=== PATIENT | female | born 1970 | race American Indian/Alaskan Native ===

== ENCOUNTER 2017-01-07 23:20 | Emergency (ER) | payer MEDICAID ==
[2017-01-07] MEDS ORDERED: Ondansetron 4 MG/2 ML SDV IV ONE (23:33)
[2017-01-07] MEDS ORDERED: Sodium Chloride 0.9% 1,000 ML IV ONE (23:33)
[2017-01-07 23:34] VITALS: BP 134/71
--- NOTE | 2017-01-07 23:43 | EDM.PDOC ---
ED HPI GI/ABDOMINAL - General Chief Complaint: Abdominal Pain Stated Complaint: VOMITING W/BLOOD,CAN'T KEEP ANYTHING DOWN Time Seen by Provider: 01/07/17 23:35 Source of Information: Reports: Patient History Limitations: Reports: No limitations - History of Present Illness INITIAL COMMENTS - FREE TEXT/NARRATIVE: This 46 yo female patient reports to the ED with nausea/vomiting and not feeling well. The patient reports her symptoms started about 1 week ago, but have been getting worse over the past 2 days. The patient has not been seen by a clinic provider. The patient denies any drug or ETOH use. The patient does have a history of Honey with a similar episode about 8 years ago. The patient reports having some blood in her vomit, but no large amounts of blood in her vomit. Symptom Onset Date: 12/31/16 Timing/Duration: Reports: Constant, Getting worse Location: generalized Quality: Reports: ache, cramping Severity: moderate Improves with: Reports: other Worsens with: Reports: other Associated Symptoms (-Female): Reports: malaise, nausea/vomiting - Related Data Allergies/ADRs: Allergies Allergy/AdvReac Type Severity Reaction Status Date / Time codeine Allergy Nausea and Verified 01/07/17 23:29 Vomiting flu vacine Allergy Hives Uncoded 01/07/17 23:29 Home Meds: Home Meds Ibuprofen [Motrin] 800 mg PO Q6H PRN 08/06/15 [History] Sertraline [Zoloft] 150 mg PO BEDTIME 08/06/15 [History] Pregabalin [Lyrica] 150 mg PO BID 09/18/15 [History] Zolpidem Tartrate [Ambien] 5 mg PO BEDTIME PRN 06/29/16 [History] Past Medical History - Past Health History Medical/Surgical History: Denies Medical/Surgical History HEENT History: Reports: Impaired vision Other HEENT History: wears glasses Cardiovascular History: Reports: None Respiratory History: Reports: None Gastrointestinal History: Reports: Cholelithiasis Genitourinary History: Reports: UTI, recurrent REGISTRATION SPECIALIST History: Reports: Dysfunctional uterine bleeding, Ectopic , , Other (see below) Other OB/BYN History: 5 nvd, 1 tubal, 1 stillborn Musculoskeletal History: Reports: Fibromyalgia, Neck pain, chronic Other Musculoskeletal History: lupus Neurological History: Reports: Concussion, Headaches, chronic, Head trauma, Migraines, Vertigo Psychiatric History: Reports: Anxiety, Depression Endocrine/Metabolic History: Reports: Obesity/BMI 30+, Vitamin D deficiency Hematologic History: Reports: Anemia Immunologic History: Reports: SLE Oncologic (Cancer) History: Reports: Uterine Dermatologic History: Reports: None - Infectious Disease History Infectious Disease History: Reports: Chicken pox - Past Surgical History Head Surgeries/Procedures: Reports: None GI Surgical History: Reports: Appendectomy, Cholecystectomy, EGD Female Surgical History: Reports: Hysterectomy, Other (see below) Other Female Surgeries/Procedures: Ectopic with tube removal Social & Family History - Family History Family Medical History: Noncontributory Cardiac: Reports: CAD, Hypertension, [place], Prior cardiac arrest Respiratory: Reports: Asthma, COPD GI: Reports: Pancreatitis : Reports: Diabetic nephropathy, Pyelonephritis, Renal disease/insufficiency Musculoskeletal: Reports: Arthritis Endocrine/Metabolic: Reports: Diabetes, type II, IDDM Hematologic: Reports: SLE Immunologic: Reports: SLE Oncologic: Reports: Prostate, Other (see below) Other Oncologic Family History: brother had stomach CA - Tobacco Use Smoking Status *Q: Unknown Ever Smoked Years of Tobacco use: 20 Packs/Tins Daily: 0.2 Used Tobacco, but Quit: Yes Month Tobacco Last Used: 06/2016 Second Hand Smoke Exposure: No - Caffeine Use Caffeine Use: Reports: Soda - Alcohol Use Days Per Week of Alcohol Use: 0 - Recreational Drug Use Recreational Drug Use: No - Living Situation & Occupation Living situation: Reports: with family ED ROS GENERAL - Review of Systems Review Of Systems: ROS reveals no pertinent complaints other than HPI. ED EXAM, GI/ABD - Physical Exam Exam: See Below Exam Limited By: No limitations General Appearance: alert, WD/WN, moderate distress, obese Eyes: bilateral: EOMI Ears: normal external exam, normal canal, hearing grossly normal, normal TMs Nose: normal inspection, normal mucosa, no blood Throat/Mouth: Normal inspection, Normal lips, Normal teeth, Normal gums, Normal oropharynx, Normal voice, No airway compromise Head: atraumatic, normocephalic Neck: normal inspection, supple, non-tender, full range of motion Respiratory/Chest: no respiratory distress, lungs clear, normal breath sounds, no accessory muscle use, chest non-tender Cardiovascular: normal peripheral pulses, regular rate, rhythm, no edema, no gallop, no JVD, no murmur, no rub GI/Abdominal: normal bowel sounds, soft, non tender, no organomegaly, no distention, no abnormal bruit, no mass (Female) Exam: Deferred Rectal (Female) Exam: Deferred Back Exam: normal inspection, full range of motion, NT Extremities: normal inspection, normal range of motion, non-tender, normal capillary refill, no pedal edema Neurological: alert, oriented, CN II-XII intact, normal cognition, normal gait, normal reflexes, no motor/sensory deficits Psychiatric: normal affect, normal mood Skin Exam: Warm, Dry, Intact, Normal color, No rash Lymphatic: no adenopathy Course - Vital Signs Last Recorded V/S: Last Vital Signs Temp 36.4 C 01/07/17 23:33 Pulse 93 01/07/17 23:33 Resp 18 01/07/17 23:33 BP 134/71 01/07/17 23:33 Pulse Ox 99 01/07/17 23:33 - Orders/Labs/Meds Orders: Active Orders 24 hr Category Date Time Status AMYLASE [CHEM] Stat Lab 01/07/17 23:48 Received COMPREHENSIVE METABOLIC PN,CMP [CHEM] Stat Lab 01/07/17 23:48 Received LIPASE [CHEM] Stat Lab 01/07/17 23:48 Received SEDIMENTATION RATE MANUAL [HEME] Stat Lab 01/07/17 23:48 Received Labs: Laboratory Tests 01/07/17 01/07/17 01/07/17 Range/Units 23:48 23:48 23:48 WBC 6.8 (5.0-10.0) 10^3/uL RBC 3.31 L (4.2-5.4) 10^6/uL Hgb 11.0 L (12.0-16.0) g/dL Hct 30.5 L (37.0-47.0) % MCV 92.1 (80-100) fL MCH 33.2 (27.0-34.0) pg MCHC 36.1 H (33.0-35.0) g/dL Plt Count 166 (150-450) 10^3/uL Neut % (Auto) 55.0 (42.2-75.2) % Lymph % (Auto) 27.5 (20.5-50.1) % [place] % (Auto) 15.1 H (2-8) % Eos % (Auto) 2.1 (1.0-3.0) % Baso % (Auto) 0.3 (0.0-1.0) % Ammonia 43 H (11-35) umol/L C-Reactive Protein 3.2 H (0.0-1.3) mg/dL Urine Color (YELLOW) Urine Appearance (CLEAR) Urine pH (5.0-9.0) Ur Specific [place] (1.005-1.030) Urine Protein (NEGATIVE) Urine Glucose (UA) (NEGATIVE) Urine Ketones (NEGATIVE) Urine Occult Blood (NEGATIVE) Urine Nitrite (NEGATIVE) Urine Bilirubin (NEGATIVE) Urine Urobilinogen (0.2-1.0) mg/dL Ur Leukocyte Esterase (NEGATIVE) Urine RBC /HPF Urine WBC (0-5/HPF) /HPF Ur Epithelial Cells /HPF Calcium Oxalate Crystal /HPF Amorphous Sediment (0/HPF) /HPF Urine Bacteria (0-FEW/HPF) /HPF Urine Opiates Screen (NEGATIVE) Ur Oxycodone Screen (NEGATIVE) Urine Methadone Screen (NEGATIVE) Ur Barbiturates Screen (NEGATIVE) U Tricyclic Antidepress (NEGATIVE) Ur Phencyclidine Scrn (NEGATIVE) Ur Amphetamine Screen (NEGATIVE) U Methamphetamines Scrn (NEGATIVE) Urine MDMA Screen (NEGATIVE) U Benzodiazepines Scrn (NEGATIVE) Urine Cocaine Screen (NEGATIVE) U Marijuana (THC) Screen (NEGATIVE) 01/07/17 01/07/17 Range/Units 23:55 23:55 WBC (5.0-10.0) 10^3/uL RBC (4.2-5.4) 10^6/uL Hgb (12.0-16.0) g/dL Hct (37.0-47.0) % MCV (80-100) fL MCH (27.0-34.0) pg MCHC (33.0-35.0) g/dL Plt Count (150-450) 10^3/uL Neut % (Auto) (42.2-75.2) % Lymph % (Auto) (20.5-50.1) % [place] % (Auto) (2-8) % Eos % (Auto) (1.0-3.0) % Baso % (Auto) (0.0-1.0) % Ammonia (11-35) umol/L C-Reactive Protein (0.0-1.3) mg/dL Urine Color [place] (YELLOW) Urine Appearance Slightly cloudy (CLEAR) Urine pH 6.5 (5.0-9.0) Ur Specific [place] 1.020 (1.005-1.030) Urine Protein Negative (NEGATIVE) Urine Glucose (UA) Negative (NEGATIVE) Urine Ketones Negative (NEGATIVE) Urine Occult Blood Negative (NEGATIVE) Urine Nitrite Negative (NEGATIVE) Urine Bilirubin Large H (NEGATIVE) Urine Urobilinogen 4.0 H (0.2-1.0) mg/dL Ur Leukocyte Esterase Negative (NEGATIVE) Urine RBC 0-5 /HPF Urine WBC 0-5 (0-5/HPF) /HPF Ur Epithelial Cells Moderate H /HPF Calcium Oxalate Crystal Moderate H /HPF Amorphous Sediment Few (0/HPF) /HPF Urine Bacteria Many H (0-FEW/HPF) /HPF Urine Opiates Screen Negative (NEGATIVE) Ur Oxycodone Screen Negative (NEGATIVE) Urine Methadone Screen Negative (NEGATIVE) Ur Barbiturates Screen Negative (NEGATIVE) U Tricyclic Antidepress Negative (NEGATIVE) Ur Phencyclidine Scrn Negative (NEGATIVE) Ur Amphetamine Screen Negative (NEGATIVE) U Methamphetamines Scrn Positive H (NEGATIVE) Urine MDMA Screen Negative (NEGATIVE) U Benzodiazepines Scrn Negative (NEGATIVE) Urine Cocaine Screen Negative (NEGATIVE) U Marijuana (THC) Screen Negative (NEGATIVE) Meds: Medications Discontinued Medications Generic Name Dose Route Start Last Admin Trade Name Freq PRN Reason Stop Dose Admin Sodium Chloride 1,000 mls @ 999 mls/hr 01/07/17 23:33 01/07/17 23:49 Normal Saline IV 01/08/17 00:33 999 mls/hr .BOLUS ONE Administration Methylprednisolone Sodium Succinate Confirm 01/08/17 01:19 Solu-Medrol Administered 01/08/17 01:20 Dose 125 mg .ROUTE .STK-MED ONE Ondansetron HCl 4 mg 01/07/17 23:33 01/07/17 23:49 Zofran IV 01/07/17 23:34 4 mg ONETIME ONE Administration Ondansetron HCl Confirm 01/08/17 01:24 Zofran Odt Administered 01/08/17 01:25 Dose 8 mg .ROUTE .STK-MED ONE Departure - Departure Time of Disposition: 01:30 Disposition: Home, Self-Care 01 Condition: fair Clinical Impression: Gastroenteritis Lupus Qualifiers: Systemic lupus erythematosus type: other Systemic lupus erythematosus organ involvement: unspecified Qualified Code(s): M32.8 - Other forms of systemic lupus erythematosus Forms: ED Department Discharge Care Plan Goals: Discharge information was handwritten due to down time. - My Orders Last 24 Hours: My Active Orders 01/07/17 23:48 AMYLASE [CHEM] Stat COMPREHENSIVE METABOLIC PN,CMP [CHEM] Stat LIPASE [CHEM] Stat SEDIMENTATION RATE MANUAL [HEME] Stat - Assessment/Plan Last 24 Hours: My Active Orders 01/07/17 23:48 AMYLASE [CHEM] Stat COMPREHENSIVE METABOLIC PN,CMP [CHEM] Stat LIPASE [CHEM] Stat SEDIMENTATION RATE MANUAL [HEME] Stat
[2017-01-08 00:30] LABS: CHLORIDE,CL 103 mmol/L (101-111); SODIUM,NA 134 mmol/L (135-145)
[2017-01-08] MEDS ORDERED: methylPREDNISolone Sodium Succinate 125 MG/2 ML SDV ONE (01:19)
[2017-01-08] MEDS ORDERED: Ondansetron 4 MG Tab.DIS ONE (01:24)
== END 2017-01-08 01:30 | disposition home or self-care (01) ==
LOC: DL.ED 23:20
DX: K52.9 Noninfective gastroenteritis and colitis, unspecified (principal); M32.8 Other forms of systemic lupus erythematosus; E66.9 Obesity, unspecified; F32.9 Major depressive disorder, single episode, unspecified; F41.9 Anxiety disorder, unspecified; Z90.49 Acquired absence of other specified parts of digestive tract; Z90.710 Acquired absence of both cervix and uterus; Z88.6 Allergy status to analgesic agent; Z88.8 Allergy status to other drugs, medicaments and biological substances
CPT/HCPCS: 36415; 80053; 80305; 81001; 82140; 82150; 83690; 85025; 85651; 86140; 96361; 96374; 96375; 99284; A9270; J2405; J2930; J7030

== ENCOUNTER 2017-04-25 08:08 | Day surgery (SDC) | payer MEDICAID ==
[~2017-04-25 08:08] MED LIST: Midazolam 1 MG/ML 2 ML SDV ONE; fentaNYL 100 MCG/2 ML SDV ONE
[2017-04-25] MEDS ORDERED: Lactated Ringers 1,000 ML IV ONE (08:09)
[2017-04-25] MEDS ORDERED: Midazolam 1 MG/ML 2 ML SDV IV ONE ×3 (08:09→09:21)
[2017-04-25] MEDS ORDERED: Midazolam 1 MG/ML 2 ML SDV ONE (08:53)
[2017-04-25] MEDS ORDERED: Benzocaine 20% Oral Spray 59.2 ML Canister ONE (08:56)
[2017-04-25] MEDS ORDERED: Benzocaine 20% Oral Spray 59.2 ML Canister MUCMEM ONE (09:19)
--- NOTE | 2017-04-25 10:00 | OR ---
DATE: 04/25/2017 PREOPERATIVE DIAGNOSIS: Epigastric pain. POSTOPERATIVE DIAGNOSES: 1. Epigastric pain. 2. Hiatal hernia. 3. Normal appearing stomach. ATTENDING SURGEON: Patricio Chowdary MD FOURTH HAND SURGEON: Raleigh Dunlap MD PGY3 PROCEDURE: EGD with cold forceps biopsy. ESTIMATED BLOOD LOSS: 2 mL. SPECIMENS: 1. Antrum of the stomach for H. pylori testing. 2. Antrum of the stomach for permanent section. INDICATION FOR THE PROCEDURE: Kala Elkins is a 46-year-old female, who has significant epigastric pain that radiates in the left upper quadrant, it has been ongoing. She has been taking antacids without any improvement. Risks and benefits were discussed with the patient, she wished to proceed with the procedure at this time. DETAILS OF PROCEDURE: The patient was brought to the procedure room. She was sprayed in her mouth and posterior pharynx with lidocaine spray. She was placed in left lateral decubitus. Versed 4 mg was given for anesthesia. The scope was introduced and placed within the esophagus. There were no abnormal findings within the esophagus. However, the lower esophageal sphincter did not completely close and was somewhat patulous. Upon entering the stomach, there was only a minimal amount of gastric fluids present. The stomach was completely normal in appearing other than a small hiatal hernia. Intubated into the duodenum without any abnormal findings. Two biopsies were taken in the stomach antrum as listed above. The air was removed from the stomach and the scope was removed. The patient tolerated the procedure without any issues and transferred to PACU in stable condition. Dr. Patricio Chowdary was present and directed all portions of this procedure. [facility] /[id number] MTDD
[2017-04-25 15:02] VITALS: BP 109/87
== END 2017-04-25 11:30 | disposition home or self-care (01) ==
LOC: DL.ENDO 08:08
PROVIDERS: ATTEND Surgery
DX: K31.9 Disease of stomach and duodenum, unspecified (principal); K44.9 Diaphragmatic hernia without obstruction or gangrene; Z90.49 Acquired absence of other specified parts of digestive tract; Z90.711 Acquired absence of uterus with remaining cervical stump; Z98.51 Tubal ligation status; Z98.890 Other specified postprocedural states
CPT/HCPCS: 43239; 87077; J2250; J7120

== ENCOUNTER 2017-05-03 15:38 | Emergency (ER) | payer MEDICAID ==
[2017-05-03] MEDS ORDERED: Sodium Chloride 0.9% 10 ML Syringe FLUSH PRN (18:11)
[2017-05-03] MEDS ORDERED: HYDROmorphone 1 MG/ML Syringe IVPUSH ONE (18:11)
[2017-05-03 18:32] LABS: CHLORIDE,CL 101 mmol/L (101-111); SODIUM,NA 137 mmol/L (135-145)
[2017-05-03] MEDS ORDERED: Ondansetron 4 MG/2 ML SDV IV ONE (18:46)
--- NOTE | 2017-05-03 19:16 | EDM.PDOC ---
Scribed by Juliana Ceja 05/03/17 1910 for Jeremy Jama MD ED HPI GENERAL MEDICAL PROBLEM - General Chief Complaint: General Stated Complaint: SICK FROM [facility] Time Seen by Provider: 05/03/17 17:12 Source of Information: Reports: Patient, RN, RN Notes Reviewed History Limitations: Reports: No Limitations - History of Present Illness INITIAL COMMENTS - FREE TEXT/NARRATIVE: Patient complaining of pain increasing in general abdomen on 04/11/17. Began noticing jaundice about 4 days ago. PCP told patient to go to [employer] today, but she didn't have a ride. Patient reports temperature of 100F earlier today. Admits to nausea. Has been taking nausea med. Location: Reports: Abdomen Quality: Reports: Ache Severity: Severe Improves with: Reports: None Worsens with: Reports: None Associated Symptoms: Reports: No Other Symptoms Middle Abdominal Pain Score (Numeric/FACES): 6 - Related Data Allergies Allergy/AdvReac Type Severity Reaction Status Date / Time codeine Allergy Nausea and Verified 05/03/17 17:30 Vomiting flu vacine Allergy Hives Uncoded 05/03/17 17:30 Home Meds: Home Meds Sertraline [Zoloft] 150 mg PO BEDTIME 08/06/15 [History] Pregabalin [Lyrica] 150 mg PO BID 09/18/15 [History] Zolpidem Tartrate [Ambien] 10 mg PO BEDTIME PRN 06/29/16 [History] Cholecalciferol (Vitamin D3) [Vitamin D3] 2,000 unit PO DAILY 04/23/17 [History] Furosemide [Lasix] 20 mg PO DAILY 04/23/17 [History] Omeprazole 20 mg PO BID 04/23/17 [History] Ondansetron HCl [Ondansetron] 4 mg PO Q6H PRN 04/23/17 [History] azaTHIOprine [Imuran] 50 mg PO TID 04/23/17 [History] oxyCODONE 5 mg PO QID PRN MDD 25 mg 04/23/17 [History] predniSONE [Prednisone] 15 mg PO BID 04/23/17 [History] Past Medical History - Past Health History Medical/Surgical History: Denies Medical/Surgical History HEENT History: Reports: Impaired Vision Other HEENT History: wears glasses Cardiovascular History: Reports: None Respiratory History: Reports: None Gastrointestinal History: Reports: Cholelithiasis Genitourinary History: Reports: UTI, Recurrent 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 CARE CONSULTANT History: 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: Dysfunctional Uterine Bleeding, Ectopic , , Other (See Below) Other OB/BYN History: 5 nvd, 1 tubal, 1 stillborn Musculoskeletal History: Reports: Fibromyalgia, Neck Pain, Chronic Other Musculoskeletal History: lupus Neurological History: Reports: Concussion, Headaches, Chronic, Head Trauma, Migraines, Vertigo Psychiatric History: Reports: Anxiety, Depression Endocrine/Metabolic History: Reports: Obesity/BMI 30+, Vitamin D Deficiency Hematologic History: Reports: Anemia Immunologic History: Reports: SLE Oncologic (Cancer) History: Reports: Uterine Dermatologic History: Reports: None - Infectious Disease History Infectious Disease History: Reports: Chicken Pox - Past Surgical History Head Surgeries/Procedures: Reports: None GI Surgical History: Reports: Appendectomy, Cholecystectomy, EGD Female Surgical History: Reports: Hysterectomy, Tubal Ligation, Other (See Below) Other Female Surgeries/Procedures: Ectopic with tube removal Social & Family History - Family History Family Medical History: Noncontributory Cardiac: Reports: CAD, Hypertension, [place], Prior Cardiac Arrest Respiratory: Reports: Asthma, COPD GI: Reports: Pancreatitis : Reports: Diabetic Nephropathy, Pyelonephritis, Renal Disease/Insufficiency Musculoskeletal: Reports: Arthritis Endocrine/Metabolic: Reports: Diabetes, type II, IDDM Hematologic: Reports: SLE Immunologic: Reports: SLE Oncologic: Reports: Prostate, Other (See Below) Other Oncologic Family History: brother had stomach CA - Tobacco Use Smoking Status *Q: Unknown Ever Smoked Years of Tobacco use: 20 Packs/Tins Daily: 0.2 Used Tobacco, but Quit: Yes Month Tobacco Last Used: 06/2016 Second Hand Smoke Exposure: No - Caffeine Use Caffeine Use: Reports: Soda - Alcohol Use Days Per Week of Alcohol Use: 0 - Recreational Drug Use Recreational Drug Use: No - Living Situation & Occupation Living situation: Reports: with Family ED ROS GENERAL - Review of Systems Review Of Systems: ROS reveals no pertinent complaints other than HPI. ED EXAM, GENERAL - Physical Exam Exam: See Below Exam Limited By: No Limitations General Appearance: Other (chronically ill appearing, obese. ) Eye Exam: Bilateral Eye: Other (scleral icterus) Ears: Normal External Exam, Normal Canal, Hearing Grossly Normal, Normal TMs Nose: Normal Inspection, Normal Mucosa, No Blood Throat/Mouth: Normal Inspection, Normal Lips, Normal Teeth, Normal Gums, Normal Oropharynx, Normal Voice, No Airway Compromise Head: Atraumatic, Normocephalic Neck: Normal Inspection, Supple, Non-Tender, Full Range of Motion Respiratory/Chest: No Respiratory Distress, Lungs Clear, Normal Breath Sounds, No Accessory Muscle Use, Chest Non-Tender Cardiovascular: Normal Peripheral Pulses, Regular Rate, Rhythm, No Edema, No Gallop, No JVD, No Murmur, No Rub GI/Abdominal: Other (generalizzed tenderness to obese, protuberant abdomen.) (Female) Exam: Deferred Rectal (Female) Exam: Deferred Back Exam: Normal Inspection, Full Range of Motion, NT Extremities: Normal Inspection, Normal Range of Motion, Non-Tender, Normal Capillary Refill, No Pedal Edema Neurological: Alert, Oriented, CN II-XII Intact, Normal Cognition, Normal Gait, Normal Reflexes, No Motor/Sensory Deficits Psychiatric: Normal Affect, Normal Mood Skin Exam: Other (warm, dry, intact, jaundiced--mild. ) Course - Vital Signs Last Recorded V/S: Last Vital Signs Temp 36.9 C 05/03/17 18:59 Pulse 101 H 05/03/17 18:59 Resp 18 05/03/17 18:59 BP 118/67 05/03/17 18:59 Pulse Ox 93 L 05/03/17 18:59 - Orders/Labs/Meds Orders: Active Orders 24 hr Category Date Time Status Peripheral IV Care [RC] . DIRECTED Care 05/03/17 18:11 Active Sodium Chloride 0.9% [Saline Flush] Med 05/03/17 18:11 Active 10 ml FLUSH ASDIRECTED PRN Peripheral IV Insertion Adult [OM.PC] Stat Oth 05/03/17 18:11 Ordered Medication Orders Sodium Chloride (Saline Flush) 10 ml FLUSH ASDIRECTED PRN PRN Reason: Keep Vein Open Last Admin: 05/03/17 18:22 Dose: 10 ml Labs: Laboratory Tests 05/03/17 05/03/17 05/03/17 Range/Units 17:20 17:20 17:20 WBC 9.9 (5.0-10.0) 10^3/uL RBC 2.71 L (4.2-5.4) 10^6/uL Hgb 10.2 L (12.0-16.0) g/dL Hct 30.0 L (37.0-47.0) % MCV 110.7 H (80-100) fL MCH 37.6 H (27.0-34.0) pg MCHC 34.0 (33.0-35.0) g/dL Plt Count 143 L (150-450) 10^3/uL Neut % (Auto) 89.2 H (42.2-75.2) % Lymph % (Auto) 6.3 L (20.5-50.1) % [place] % (Auto) 4.3 (2-8) % Eos % (Auto) 0.1 L (1.0-3.0) % Baso % (Auto) 0.1 (0.0-1.0) % PT (9.0-12.0) SEC INR (0.9-1.2) APTT (22.0-34.0) SEC Sodium 137 (135-145) mmol/L Potassium 3.3 L (3.6-5.0) mmol/L Chloride 101 (101-111) mmol/L Carbon Dioxide 24.0 (21.0-31.0) mmol/L Anion Gap 15.3 BUN 17 (7-18) mg/dL Creatinine 0.9 (0.6-1.3) mg/dL Est Cr Clr Drug Dosing 58.31 mL/min Estimated GFR (MDRD) > 60 BUN/Creatinine Ratio 18.88 Glucose 86 (74-105) mg/dL Calcium 8.4 (8.4-10.2) mg/dl Total Bilirubin 10.4 H (0.2-1.0) mg/dL AST 72 H (10-42) IU/L ALT 47 (10-60) IU/L Alkaline Phosphatase 142 H (42-121) IU/L C-Reactive Protein 1.0 (0.0-1.3) mg/dL Total Protein 6.0 L (6.7-8.2) g/dl Albumin 2.6 L (3.2-5.5) g/dl Globulin 3.4 Albumin/Globulin Ratio 0.76 Amylase 124 H (28-100) U/L Lipase 105 H (22-51) U/L Urine Color (YELLOW) Urine Appearance (CLEAR) Urine pH (5.0-9.0) Ur Specific [place] (1.005-1.030) Urine Protein (NEGATIVE) Urine Glucose (UA) (NEGATIVE) Urine Ketones (NEGATIVE) Urine Occult Blood (NEGATIVE) Urine Nitrite (NEGATIVE) Urine Bilirubin (NEGATIVE) Urine Urobilinogen (0.2-1.0) mg/dL Ur Leukocyte Esterase (NEGATIVE) Urine RBC /HPF Urine WBC (0-5/HPF) /HPF Ur Epithelial Cells /HPF Urine Bacteria (0-FEW/HPF) /HPF Urine Mucus /LPF 05/03/17 05/03/17 Range/Units 18:17 18:28 WBC (5.0-10.0) 10^3/uL RBC (4.2-5.4) 10^6/uL Hgb (12.0-16.0) g/dL Hct (37.0-47.0) % MCV (80-100) fL MCH (27.0-34.0) pg MCHC (33.0-35.0) g/dL Plt Count (150-450) 10^3/uL Neut % (Auto) (42.2-75.2) % Lymph % (Auto) (20.5-50.1) % [place] % (Auto) (2-8) % Eos % (Auto) (1.0-3.0) % Baso % (Auto) (0.0-1.0) % PT 13.2 H (9.0-12.0) SEC INR 1.3 H (0.9-1.2) APTT 26.3 (22.0-34.0) SEC Sodium (135-145) mmol/L Potassium (3.6-5.0) mmol/L Chloride (101-111) mmol/L Carbon Dioxide (21.0-31.0) mmol/L Anion Gap BUN (7-18) mg/dL Creatinine (0.6-1.3) mg/dL Est Cr Clr Drug Dosing mL/min Estimated GFR (MDRD) BUN/Creatinine Ratio Glucose (74-105) mg/dL Calcium (8.4-10.2) mg/dl Total Bilirubin (0.2-1.0) mg/dL AST (10-42) IU/L ALT (10-60) IU/L Alkaline Phosphatase (42-121) IU/L C-Reactive Protein (0.0-1.3) mg/dL Total Protein (6.7-8.2) g/dl Albumin (3.2-5.5) g/dl Globulin Albumin/Globulin Ratio Amylase (28-100) U/L Lipase (22-51) U/L Urine Color [place] (YELLOW) Urine Appearance Clear (CLEAR) Urine pH 6.0 (5.0-9.0) Ur Specific [place] 1.010 (1.005-1.030) Urine Protein Negative (NEGATIVE) Urine Glucose (UA) Negative (NEGATIVE) Urine Ketones Trace H (NEGATIVE) Urine Occult Blood Trace-intact H (NEGATIVE) Urine Nitrite Negative (NEGATIVE) Urine Bilirubin Large H (NEGATIVE) Urine Urobilinogen 2.0 H (0.2-1.0) mg/dL Ur Leukocyte Esterase Negative (NEGATIVE) Urine RBC 0-5 /HPF Urine WBC 0-5 (0-5/HPF) /HPF Ur Epithelial Cells Moderate H /HPF Urine Bacteria Few (0-FEW/HPF) /HPF Urine Mucus Few H /LPF Meds: Medications Generic Name Dose Route Start Last Admin Trade Name Frerene PRN Reason Stop Dose Admin Sodium Chloride 10 ml 05/03/17 18:11 05/03/17 18:22 Saline Flush FLUSH 10 ml ASDIRECTED PRN Administration Keep Vein Open Discontinued Medications Generic Name Dose Route Start Last Admin Trade Name Frerene PRN Reason Stop Dose Admin Hydromorphone HCl 1 mg 05/03/17 18:11 05/03/17 18:22 Dilaudid IVPUSH 05/03/17 18:12 1 mg ONETIME ONE Administration Ondansetron HCl 4 mg 05/03/17 18:46 05/03/17 19:01 Zofran IV 05/03/17 18:47 4 mg ONETIME ONE Administration Departure - Departure Time of Disposition: 19:20 Disposition: DC/Tfer to Acute Hospital 02 Condition: Serious Clinical Impression: SLE exacerbation, Jaundice, Abdominal pain, Nausea & vomiting - Discharge Information Forms: ED Department Discharge, Interfacility Transfer EMTALA I have read and agree with the documentation that has been completed regarding this visit. By signing this record, I attest that the documentation was completed in my physical presence and is an accurate record of the encounter.
[2017-05-03 19:20] VITALS: BP 102/68
== END 2017-05-03 20:13 ==
LOC: DL.ED 15:38
DX: M32.9 Systemic lupus erythematosus, unspecified (principal); R17 Unspecified jaundice; R10.9 Unspecified abdominal pain; R11.2 Nausea with vomiting, unspecified; E66.9 Obesity, unspecified; Z87.440 Personal history of urinary (tract) infections; Z90.49 Acquired absence of other specified parts of digestive tract; Z98.890 Other specified postprocedural states; Z79.899 Other long term (current) drug therapy; Z88.5 Allergy status to narcotic agent; Z88.7 Allergy status to serum and vaccine
CPT/HCPCS: 36415; 80053; 81001; 82150; 83690; 85025; 85610; 85730; 86140; 96374; 96375; 99284; J1170; J2405; J7050

== ENCOUNTER 2017-07-31 21:51 | Emergency (ER) | payer MEDICAID ==
[2017-07-31] MEDS ORDERED: Lidocaine 1% with EPINEPHrine 1:100,000 20 ML MDV INJECT ONE (22:07)
--- NOTE | 2017-07-31 22:12 | EDM.PDOC ---
ED HPI GENERAL MEDICAL PROBLEM - General Chief Complaint: Laceration Stated Complaint: LEFT ELBOW BLEEDING Time Seen by Provider: 07/31/17 22:07 Source of Information: Reports: Patient History Limitations: Reports: No Limitations - History of Present Illness INITIAL COMMENTS - FREE TEXT/NARRATIVE: bumped left elbow made a pin hole and won't stop bleeding. - Related Data Allergies Allergy/AdvReac Type Severity Reaction Status Date / Time codeine Allergy Nausea and Verified 05/13/17 07:48 Vomiting flu vacine Allergy Hives Uncoded 05/03/17 17:30 Home Meds: Home Meds Sertraline [Zoloft] 150 mg PO BEDTIME 08/06/15 [History] Pregabalin [Lyrica] 150 mg PO BID 09/18/15 [History] Zolpidem Tartrate [Ambien] 10 mg PO BEDTIME PRN 06/29/16 [History] Cholecalciferol (Vitamin D3) [Vitamin D3] 2,000 unit PO DAILY 04/23/17 [History] Furosemide [Lasix] 20 mg PO DAILY 04/23/17 [History] Omeprazole 20 mg PO BID 04/23/17 [History] Ondansetron HCl [Ondansetron] 4 mg PO Q6H PRN 04/23/17 [History] azaTHIOprine [Imuran] 50 mg PO TID 04/23/17 [History] oxyCODONE 5 mg PO QID PRN MDD 25 mg 04/23/17 [History] predniSONE [Prednisone] 15 mg PO BID 04/23/17 [History] Past Medical History - Past Health History Medical/Surgical History: Denies Medical/Surgical History HEENT History: Reports: Impaired Vision Other HEENT History: wears glasses Cardiovascular History: Reports: None Respiratory History: Reports: None Gastrointestinal History: Reports: Cholelithiasis, Cirrhosis, Hepatitis Genitourinary History: Reports: UTI, 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 Bleeding, Ectopic , , Other (See Below) Other OB/BYN History: 5 nvd, 1 tubal, 1 stillborn Musculoskeletal History: Reports: Fibromyalgia, Neck Pain, Chronic Other Musculoskeletal History: lupus Neurological History: Reports: Concussion, Headaches, Chronic, Head Trauma, Migraines, Vertigo Psychiatric History: Reports: Anxiety, Depression Endocrine/Metabolic History: Reports: Obesity/BMI 30+, Vitamin D Deficiency Hematologic History: Reports: Anemia Immunologic History: Reports: SLE Oncologic (Cancer) History: Reports: Uterine Dermatologic History: Reports: None - Infectious Disease History Infectious Disease History: Reports: Chicken Pox - Past Surgical History Head Surgeries/Procedures: Reports: None GI Surgical History: Reports: Appendectomy, Cholecystectomy, EGD Female Surgical History: Reports: Hysterectomy, Tubal Ligation, Other (See Below) Other Female Surgeries/Procedures: Ectopic with tube removal Social & Family History - Family History Family Medical History: Noncontributory Cardiac: Reports: CAD, Hypertension, [place], Prior Cardiac Arrest Respiratory: Reports: Asthma, COPD GI: Reports: Pancreatitis : Reports: Diabetic Nephropathy, Pyelonephritis, Renal Disease/Insufficiency Musculoskeletal: Reports: Arthritis Endocrine/Metabolic: Reports: Diabetes, type II, IDDM Hematologic: Reports: SLE Immunologic: Reports: SLE Oncologic: Reports: Prostate, Other (See Below) Other Oncologic Family History: brother had stomach CA - Tobacco Use Smoking Status *Q: Never Smoker Years of Tobacco use: 20 Packs/Tins Daily: 0.2 Used Tobacco, but Quit: Yes Month Tobacco Last Used: 06/2016 Second Hand Smoke Exposure: No - Caffeine Use Caffeine Use: Reports: Soda - Alcohol Use Days Per Week of Alcohol Use: 0 - Recreational Drug Use Recreational Drug Use: No - Living Situation & Occupation Living situation: Reports: with Family ED ROS GENERAL - Review of Systems Review Of Systems: ROS reveals no pertinent complaints other than HPI. ED EXAM, SKIN/RASH Exam: See Below Exam Limited By: No Limitations General Appearance: Alert, WD/WN, No Apparent Distress Ears: Hearing Grossly Normal Throat/Mouth: Normal Voice, No Airway Compromise Head: Atraumatic Neck: Non-Tender, Full Range of Motion Respiratory/Chest: No Respiratory Distress Cardiovascular: Regular Rate, Rhythm GI/Abdominal: Soft, Non-Tender Extremities: Other (left elbow puncture bleeding, NV wnl) Neurological: Alert, Oriented, Normal Cognition, Normal Gait, No Motor/Sensory Deficits Psychiatric: Normal Affect, Normal Mood Skin: Warm, Dry, Normal Color Location, Skin: Upper Extremity, Left Lymphatic: No Adenopathy Course - Vital Signs Last Recorded V/S: Last Vital Signs Temp 37.7 C 07/31/17 21:54 Pulse 128 H 07/31/17 21:54 Resp 18 07/31/17 21:54 BP 136/77 07/31/17 21:54 Pulse Ox 97 07/31/17 21:54 - Orders/Labs/Meds Meds: Medications Discontinued Medications Generic Name Dose Route Start Last Admin Trade Name Rosy PRN Reason Stop Dose Admin Lidocaine/Epinephrine 20 ml 07/31/17 22:07 07/31/17 22:09 Xylocaine 1% With Epinephrine 1:100,000 INJECT 07/31/17 22:08 20 ml ONETIME ONE Administration - Re-Assessments/Exams Free Text/Narrative Re-Assessment/Exam: 07/31/17 22:11 1) cleansed 2) lido with epi local infiltration 3) surgicel dressing with tena wrap 4) no complication 07/31/17 22:41 re-exam; no further bleeding. Departure - Departure Time of Disposition: 22:41 Disposition: Home, Self-Care 01 Condition: Good Clinical Impression: Puncture wound of elbow, left, complicated Qualifiers: Encounter type: initial encounter Qualified Code(s): S51.032A - Puncture wound without foreign body of left elbow, initial encounter - Discharge Information Instructions: Puncture Wound, [id number] Forms: ED Department Discharge Additional Instructions: 1) keep wound clean dry covered 2) wound check Saturday 3) recheck as needed
[2017-07-31 22:45] VITALS: BP 124/78
== END 2017-07-31 22:50 | disposition home or self-care (01) ==
LOC: DL.ED 21:51
DX: S51.032A Puncture wound without foreign body of left elbow, initial encounter (principal); F32.9 Major depressive disorder, single episode, unspecified; Z87.891 Personal history of nicotine dependence; Z79.899 Other long term (current) drug therapy; Z88.5 Allergy status to narcotic agent; Z88.7 Allergy status to serum and vaccine; W22.8XXA Striking against or struck by other objects, initial encounter
CPT/HCPCS: 99283

== ENCOUNTER 2018-01-10 17:23 | Emergency (ER) | payer MEDICAID ==
[2018-01-10 17:53] VITALS: BP 141/62
--- NOTE | 2018-01-10 18:12 | EDM.PDOC ---
Scribed by Juliana Ceja 01/10/18 1810 for Jeremy Jama MD ED HPI GENERAL MEDICAL PROBLEM - General Chief Complaint: Lower Extremity Injury/Pain Stated Complaint: ANKLE PAIN, [id number] Time Seen by Provider: 01/10/18 17:35 Source of Information: Reports: Patient, RN, RN Notes Reviewed History Limitations: Reports: No Limitations - History of Present Illness INITIAL COMMENTS - FREE TEXT/NARRATIVE: Patient presents to ER after she stepped in a hole and injured her left foot and ankle. Denies any other injury. Onset: Today Duration: Constant Location: Reports: Lower Extremity, Left Quality: Reports: Ache Severity: Severe Improves with: Reports: None Worsens with: Reports: None Associated Symptoms: Reports: No Other Symptoms Left Ankle Pain Score (Numeric/FACES): 5 - Related Data Allergies Allergy/AdvReac Type Severity Reaction Status Date / Time codeine Allergy Nausea and Verified 01/10/18 17:53 Vomiting flu vacine Allergy Hives Uncoded 05/03/17 17:30 Home Meds: Home Meds Sertraline [Zoloft] 150 mg PO BEDTIME 08/06/15 [History] Pregabalin [Lyrica] 150 mg PO BID 09/18/15 [History] Zolpidem Tartrate [Ambien] 10 mg PO BEDTIME PRN 06/29/16 [History] Cholecalciferol (Vitamin D3) [Vitamin D3] 2,000 unit PO DAILY 04/23/17 [History] Furosemide [Lasix] 20 mg PO DAILY 04/23/17 [History] Omeprazole 20 mg PO BID 04/23/17 [History] Ondansetron HCl [Ondansetron] 4 mg PO Q6H PRN 04/23/17 [History] azaTHIOprine [Imuran] 50 mg PO TID 04/23/17 [History] oxyCODONE 5 mg PO QID PRN MDD 25 mg 04/23/17 [History] predniSONE [Prednisone] 15 mg PO BID 04/23/17 [History] Past Medical History - Past Health History Medical/Surgical History: Denies Medical/Surgical History HEENT History: Reports: Impaired Vision Other HEENT History: wears glasses Cardiovascular History: Reports: None Respiratory History: Reports: None Gastrointestinal History: Reports: Cholelithiasis, Cirrhosis, Hepatitis Genitourinary History: Reports: UTI, 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 Bleeding, Ectopic , , Other (See Below) Other OB/BYN History: 5 nvd, 1 tubal, 1 stillborn Musculoskeletal History: Reports: Fibromyalgia, Neck Pain, Chronic Other Musculoskeletal History: lupus Neurological History: Reports: Concussion, Headaches, Chronic, Head Trauma, Migraines, Vertigo Psychiatric History: Reports: Anxiety, Depression Endocrine/Metabolic History: Reports: Obesity/BMI 30+, Vitamin D Deficiency Hematologic History: Reports: Anemia Immunologic History: Reports: SLE Oncologic (Cancer) History: Reports: Uterine Dermatologic History: Reports: None - Infectious Disease History Infectious Disease History: Reports: Chicken Pox - Past Surgical History Head Surgeries/Procedures: Reports: None GI Surgical History: Reports: Appendectomy, Cholecystectomy, EGD Female Surgical History: Reports: Hysterectomy, Tubal Ligation, Other (See Below) Other Female Surgeries/Procedures: Ectopic with tube removal Social & Family History - Family History Family Medical History: Noncontributory Cardiac: Reports: CAD, Hypertension, [place], Prior Cardiac Arrest Respiratory: Reports: Asthma, COPD GI: Reports: Pancreatitis : Reports: Diabetic Nephropathy, Pyelonephritis, Renal Disease/Insufficiency Musculoskeletal: Reports: Arthritis Endocrine/Metabolic: Reports: Diabetes, type II, IDDM Hematologic: Reports: SLE Immunologic: Reports: SLE Oncologic: Reports: Prostate, Other (See Below) Other Oncologic Family History: brother had stomach CA - Caffeine Use Caffeine Use: Reports: Soda - Living Situation & Occupation Living situation: Reports: with Family Review of Systems - Review of Systems Review Of Systems: ROS reveals no pertinent complaints other than HPI. ED EXAM, GENERAL - Physical Exam Exam: See Below Exam Limited By: No Limitations General Appearance: Alert, No Apparent Distress, Obese Head: Atraumatic, Normocephalic Respiratory/Chest: No Respiratory Distress Cardiovascular: Normal Peripheral Pulses Back Exam: Normal Inspection Extremities: Normal Capillary Refill, Joint Swelling (left lateral ankle), Other (bruising and swelling with tenderness to the lateral mid foot) Neurological: Alert, Oriented, CN II-XII Intact, Normal Cognition, Normal Gait, Normal Reflexes, No Motor/Sensory Deficits Course - Vital Signs Last Recorded V/S: Last Vital Signs Temp 36.6 C 01/10/18 17:30 Pulse 62 01/10/18 17:30 Resp 16 01/10/18 17:30 BP 141/62 H 01/10/18 17:30 Pulse Ox 100 01/10/18 17:30 - Orders/Labs/Meds Orders: Active Orders 24 hr Category Date Time Status JULIEN Bandage [Elastic Wrap] [OM.PC] Routine Oth 01/10/18 17:54 Ordered DME for Discharge [COMM] Routine Oth 01/10/18 17:54 Ordered Pt declines crutches. - Radiology Interpretation Free Text/Narrative:: Left ankle and foot x-ray: Sprain. See rad report. Departure - Departure Time of Disposition: 18:08 Disposition: Home, Self-Care 01 Condition: Good Clinical Impression: Left ankle sprain Qualifiers: Encounter type: initial encounter Involved ligament of ankle: unspecified ligament Qualified Code(s): S93.402A - Sprain of unspecified ligament of left ankle, initial encounter Sprain of left foot Qualifiers: Encounter type: initial encounter Qualified Code(s): S93.602A - Unspecified sprain of left foot, initial encounter - Discharge Information Instructions: Ankle Sprain, [id number] Forms: ED Department Discharge Additional Instructions: Rest, ice and elevate the left ankle and foot to reduce pain and swelling. Weight bearing and activity as tolerated. Use Julien wrap as needed for comfort. Follow up in clinic if not improving in 7 to 10 days as expected. - My Orders Last 24 Hours: My Active Orders 01/10/18 17:54 JULIEN Bandage [Elastic Wrap] [OM.PC] Routine DME for Discharge [COMM] Routine - Assessment/Plan Last 24 Hours: My Active Orders 01/10/18 17:54 JULIEN Bandage [Elastic Wrap] [OM.PC] Routine DME for Discharge [COMM] Routine I have read and agree with the documentation that has been completed regarding this visit. By signing this record, I attest that the documentation was completed in my physical presence and is an accurate record of the encounter.
== END 2018-01-10 18:18 | disposition home or self-care (01) ==
LOC: DL.ED 17:23
DX: S93.402A Sprain of unspecified ligament of left ankle, initial encounter (principal); S93.602A Unspecified sprain of left foot, initial encounter; Z88.5 Allergy status to narcotic agent; Z88.7 Allergy status to serum and vaccine; Z79.899 Other long term (current) drug therapy; W22.8XXA Striking against or struck by other objects, initial encounter
CPT/HCPCS: 73610-LT; 73630-LT; 99283

== ENCOUNTER 2018-10-30 07:38 | Day surgery (SDC) | payer MEDICAID ==
[~2018-10-30 07:38] MED LIST changes: +Lactated Ringers 1,000 ML IV SCH; -Midazolam 1 MG/ML 2 ML SDV ONE; +Sodium Chloride 0.9% 10 ML Syringe FLUSH PRN; +ceFAZolin 1 GM in Premix Bag 1 BAG IV ONE; -fentaNYL 100 MCG/2 ML SDV ONE
[2018-10-30] MEDS ORDERED: Lidocaine 2% 20 ML MDV INJECT ONE (07:39)
[2018-10-30] MEDS ORDERED: Midazolam 1 MG/ML 2 ML SDV IV ONE (07:39)
[2018-10-30] MEDS ORDERED: fentaNYL 100 MCG/2 ML SDV IV ONE ×2 (07:39)
[2018-10-30] MEDS ORDERED: Lidocaine 1% 30 ML SDV INJECT ONE ×4 (07:39→12:16)
[2018-10-30] MEDS ORDERED: Ketorolac 30 MG/ML SDV IVPUSH ONE (07:39)
[2018-10-30] MEDS ORDERED: Propofol 200 MG/20 ML SDV IV ONE (07:39)
[2018-10-30] MEDS ORDERED: Ondansetron 4 MG/2 ML SDV IV ONE (07:39)
[2018-10-30] MEDS ORDERED: Bupivacaine 0.5% 30 ML SDV INJECT ONE ×4 (07:39→12:16)
[2018-10-30] MEDS ORDERED: Lidocaine 1% 30 ML SDV ONE (10:06)
[2018-10-30] MEDS ORDERED: Bupivacaine 0.5% 30 ML SDV ONE (10:06)
[2018-10-30] MEDS ORDERED: ceFAZolin 2 GM in Premix Bag 1 BAG IV SCH (10:30)
[2018-10-30] MEDS ORDERED: Acetaminophen/oxyCODONE 325-5 MG Tab PO PRN (12:25)
--- NOTE | 2018-10-30 12:30 | PCM.OPNOTE ---
- General Post-Op/Procedure Note Date of Surgery/Procedure: 10/30/18 Operative Procedure(s): Right foot open plantar fascia release, distal tibia and calcaneus decompression drilling with bone allograft gel, medial cuneiform and first metatarsal percutaneous drilling decompression. Pre Op Diagnosis: right foot chronic plantar fasciitis, avascular necrosis distal tibia, calcaneus, medial cuneiform, 1st metatarsal Post-Op Diagnosis: myke Anesthesia Technique: General LMA Primary Surgeon: Kenya Rodriguez Anesthesia Provider: Janes Jurado EBL in mLs: 10 Complications: none Condition: Good Free Text/Narrative:: Pt tolerated procedure well and was transported to recovery with vascular status intact to right LE. Well padded compression dressing applied with cam boot NWB. [employer] DBM gel used.
[2018-10-30 15:11] VITALS: BP 113/75
--- NOTE | 2018-10-31 11:25 | OR ---
DATE: 10/30/2018 PREOPERATIVE DIAGNOSES: 1. Right foot plantar fasciitis. 2. Right distal tibia, calcaneus, medial cuneiform and 1st metatarsal avascular necrosis. POSTOPERATIVE DIAGNOSES: 1. Right foot plantar fasciitis. 2. Right distal tibia, calcaneus, medial cuneiform and 1st metatarsal avascular necrosis. PROCEDURES PERFORMED: 1. Right foot open plantar fasciectomy. 2. Right distal tibia and calcaneus core decompression with DBM gel allograft. 3. Right 1st metatarsal and medial cuneiform core decompression. ANESTHESIA: Local MAC with preoperative local block of 20 mL of 1:1 mixture of 1% lidocaine plain and 0.5% Marcaine plain. TOURNIQUET TIME: 76 minutes of pneumatic high ankle tourniquet. ESTIMATED BLOOD LOSS: Minimal. SPECIMEN REMOVED: None. COMPLICATIONS: None. INDICATIONS: Kala is a 48-year-old female who presents with right foot and ankle pain. I have been seeing her for several months now. I did a left foot and ankle core decompression of avascular necrosis on her left side with the plantar fascia release and that was done in June 2018. She has had much relief with that and states that she has healed from the left side and would like to have the same procedure on the right side. She is having a lot of pain in her heel and also that ankle in the right foot. So much so that it is fairly bothering her to walk and she is having trouble walking any amount of distance. Pain whenever she is standing or walking to that right side. MRI of the right ankle reveals avascular necrosis of the distal tibia, there are 2 areas at the calcaneus, medial cuneiform and 1st metatarsal. She does have increased signal intensity at the insertion of the plantar fascia with thickened tissue at the insertion site. The patient voiced good understanding of the proposed procedure and possible complications and elects to have surgery at this time. DESCRIPTION OF PROCEDURE: The patient was taken to the operating room lying in a supine position. After adequate anesthesia induction as described above, the right foot was prepped and draped in usual sterile fashion. A pneumatic high ankle tourniquet was inflated to 225 mmHg. Attention was first directed to the instep just distal to the calcaneus, where an approximately 4 cm linear incision was made at the plantar foot to gain access to the plantar fascia band. Sharp and blunt dissections were performed down to the level of the central and medial plantar fascia band. An approximately 1 cm2 section of the plantar fascia band was resected from the foot. Inspection of the area revealed no further tightness of the plantar fascia. The area was irrigated with copious amounts of sterile saline. Deep closure was completed with 3-0 Vicryl and skin closure was completed with 4-0 nylon. Attention was then directed to the dorsal aspect of the distal tibia, prior to the surgery, I did use intraoperative fluoroscopy to caleb out all my areas of avascular necrosis, so I knew where to make my incisions. Attention was directed to the dorsal aspect of the distal tibia where a small incision was made just medial to the anterior tibial tendon being careful to avoid the neurovascular structures in this area. Sharp and blunt dissections were performed down to the level of the periosteum of the tibia at the area of avascular necrosis noted on the MRI. A large drill bit was used to make a core decompression in the tibia and a second one was made just 1 cm proximal to the first. A curette was then used to curette out the avascular bone from the tibia. The area was then irrigated and DBM gel was inserted into the drill holes using 4 mL of the DBM in this area until it was packed full. The area was then closed with 3-0 Vicryl for deep closure and 4-0 nylon to the skin. Attention was then directed to the lateral calcaneus and a small incision was made at the lateral calcaneus at the proximal aspect first, sharp and blunt dissection was performed down to the level of the periosteum. Care was taken to avoid the sural neurovascular bundle. The large drill bit was again used to make the core decompression and 1 mL of the gel allograft was inserted into this area. The area was irrigated and closed with 3-0 Vicryl and 4-0 nylon. Attention was then directed to the distal calcaneus where again sharp and blunt dissections were performed down to the level of periosteum and the area was drilled. A 0.062 inch K-wire was then used to do a percutaneous drilling of the medial cuneiform and 1st metatarsal at the areas of the AVN. The areas were irrigated with copious amounts of sterile saline. The areas were all closed with 3-0 Vicryl deep and 4-0 nylon. The foot and ankle were then dressed with Xeroform to the incision sites, fluffs, Webril, and a well-padded compression dressing with Julien wrap. She was placed nonweightbearing in a CAM boot. The patient tolerated the procedure well and left the operating room for recovery with vital signs stable in good condition with vascular status intact to the right foot and ankle. The patient was then discharged to home once she met hospital discharge requirements. [facility] /[id number]
== END 2018-10-30 13:47 | disposition home or self-care (01) ==
LOC: DL.SDS 07:38
PROVIDERS: ATTEND Podiatrist
DX: M72.2 Plantar fascial fibromatosis (principal); M87.89 Other osteonecrosis, multiple sites; E11.649 Type 2 diabetes mellitus with hypoglycemia without coma; D64.9 Anemia, unspecified; D69.6 Thrombocytopenia, unspecified; K75.4 Autoimmune hepatitis; E83.42 Hypomagnesemia; M35.00 Sjogren syndrome, unspecified; M32.9 Systemic lupus erythematosus, unspecified; F17.210 Nicotine dependence, cigarettes, uncomplicated; Z79.4 Long term (current) use of insulin; Z79.899 Other long term (current) drug therapy; Z88.5 Allergy status to narcotic agent; Z88.7 Allergy status to serum and vaccine
CPT/HCPCS: 27638; 28060; 28103; 28104; C1713; J0690; J1885; J2001; J2250; J2405; J2704; J3010; J3490; J7120

== ENCOUNTER 2022-06-26 16:49 | Emergency (ER) | payer MEDICAID ==
[2022-06-26] MEDS ORDERED: Lidocaine 1% 10 ML MDV ONE (18:21)
[2022-06-26] MEDS ORDERED: Bacitracin Oint 1 GM U/D Packet ONE (18:21)
[2022-06-26] MEDS ORDERED: Bacitracin Oint 1 GM U/D Packet TOP ONE (18:22)
[2022-06-26] MEDS ORDERED: Lidocaine 1% 10 ML MDV INJECT ONE (18:23)
[2022-06-26] MEDS ORDERED: Diphtheria,Pertussis(Acell),Tetanus Vaccine 0.5 ML Syringe IM ONE (18:23)
[2022-06-26 18:49] VITALS: BP 129/67; PULSE 79
== END 2022-06-26 18:58 | disposition home or self-care (01) ==
LOC: DL.ED 16:49
DX: S81.811A Laceration without foreign body, right lower leg, initial encounter (principal); E11.9 Type 2 diabetes mellitus without complications; F17.210 Nicotine dependence, cigarettes, uncomplicated; E66.9 Obesity, unspecified; Z68.31 Body mass index [BMI] 31.0-31.9, adult; Z23 Encounter for immunization; Z88.5 Allergy status to narcotic agent; Z88.7 Allergy status to serum and vaccine; Z79.899 Other long term (current) drug therapy; Z79.4 Long term (current) use of insulin; Z90.49 Acquired absence of other specified parts of digestive tract; W23.1XXA Caught, crushed, jammed, or pinched between stationary objects, initial encounter
CPT/HCPCS: 12002; 90471; 90715; 99282-25

== ENCOUNTER 2023-09-06 18:49 | Emergency (ER) | payer MEDICAID, OTHER ==
[2023-09-06 19:42] VITALS: PULSE 86
[2023-09-06 22:51] VITALS: BP 120/69
== END 2023-09-06 22:49 | disposition home or self-care (01) ==
LOC: DL.ED 18:49
DX: S82.832A Other fracture of upper and lower end of left fibula, initial encounter for closed fracture (principal); F17.210 Nicotine dependence, cigarettes, uncomplicated; Z79.899 Other long term (current) drug therapy; Z90.49 Acquired absence of other specified parts of digestive tract; Z90.710 Acquired absence of both cervix and uterus; Z86.16 Personal history of COVID-19; Z88.8 Allergy status to other drugs, medicaments and biological substances; Z88.7 Allergy status to serum and vaccine; X50.1XXA Overexertion from prolonged static or awkward postures, initial encounter
CPT/HCPCS: 73610-LT; 99283

== ENCOUNTER 2024-06-25 06:23 | Day surgery (SDC) | payer MEDICAID ==
[2024-06-25] MEDS ORDERED: Midazolam 1 MG/ML 2 ML SDV ONE (06:30)
[2024-06-25] MEDS ORDERED: fentaNYL 100 MCG/2 ML SDV ONE (06:31)
[2024-06-25] MEDS: Dextrose 5%-0.45% NaCl 1,000 ML IV SCH (07:00)
[2024-06-25] MEDS: fentaNYL 100 MCG/2 ML SDV IV ONE ×2 (07:42→07:43)
[2024-06-25] MEDS: Midazolam 1 MG/ML 2 ML SDV IV ONE ×2 (07:43→07:44)
[2024-06-25 08:50] VITALS: BP 100/63; PULSE 65
== END 2024-06-25 09:08 | disposition home or self-care (01) ==
LOC: DL.ENDO 06:23
PROVIDERS: ATTEND Internal Medicine Gastroenterology
DX: K75.4 Autoimmune hepatitis (principal); K74.60 Unspecified cirrhosis of liver; E11.9 Type 2 diabetes mellitus without complications; F17.210 Nicotine dependence, cigarettes, uncomplicated
CPT/HCPCS: 43235; J2250; J3010; J7799

== ENCOUNTER 2025-07-05 21:15 | Emergency (ER) | payer MEDICAID ==
[2025-07-05] MEDS: Lidocaine 2% with EPINEPHrine 1:200,000 20 ML SDV INJECT ONE (21:25)
[2025-07-05] MEDS: Bacitracin Oint 1 GM U/D Packet TOP ONE (22:15)
[2025-07-05] MEDS: Ketorolac 30 MG/ML SDV IM ONE (22:20)
[2025-07-05 22:36] VITALS: BP 136/84; PULSE 84
== END 2025-07-05 22:22 | disposition home or self-care (01) ==
LOC: DL.ED 21:15
DX: S81.811A Laceration without foreign body, right lower leg, initial encounter (principal); J45.909 Unspecified asthma, uncomplicated; Z88.5 Allergy status to narcotic agent; Z88.7 Allergy status to serum and vaccine; Z79.899 Other long term (current) drug therapy; Z79.51 Long term (current) use of inhaled steroids; Z90.49 Acquired absence of other specified parts of digestive tract; Z23 Encounter for immunization; W22.8XXA Striking against or struck by other objects, initial encounter
CPT/HCPCS: 12004; 96372; 99282; A9270; J1885; J2004